=== PATIENT | female | born 1985 | race Caucasian/White ===

== ENCOUNTER 2025-05-10 01:21 | Observation (INO) | payer OTHER, SELFPAY ==
[2025-05-10 04:15] VITALS: BP 120/59
[2025-05-10 05:15] LABS: Add Manual Diff / Slide Review NO; Hematocrit 39.3 % (36-46); Hemoglobin 13.6 g/dL (12.0-16.0); Lymphocytes Absolute Auto 1500 /uL (1100-4500); Mean Corpuscular HGB Conc 34.6 % (30-36); Mean Corpuscular Hemoglobin 32.2 PG (26-34); Mean Corpuscular Volume 93.2 fL (80-100); Platelet Count 234 X10^3/uL (150-400)
[2025-05-10] MEDS: LACTATED RINGERS 1,000 ML 100 ML IV (05:22)
[2025-05-10 13:28] VITALS: BP 120/59
--- NOTE | 2025-05-10 13:30 | P.TNLD_ITS ---
Visit Information Visit Information Date of evaluation: 05/10/25 On-call OB Provider: Marcus Fleming Reason for Evaluation: Yes rule out labor Comments/Additional reasons for admission: 39-year-old at [place] 38+4 weeks. Initially presenting for decreased movement. care received through [facility], was redirected here for evaluation by them due to hospital lock down. Endorses irregular contractions over past few days. Denies leakage of fluid or vaginal bleeding. otherwise uncomplicated. History of VAVD and BPH in prior . Vital Signs Vital Signs: Vital Signs - 8 hr 05/10/25 13:28 Blood Pressure 120/59 L PFSH Social History Smoking Status: Former smoker Review of Systems Review of Systems ROS: Yes All systems reviewed with the patient and are negative except as otherwise documented Exam Vital Signs (past 8 hours): - 05/10/25 13:28 Blood Pressure 120/59 L Narrative Exam Narrative: General: Well-nourished, no distress HEENT: NC/AT, EOMI, moist mucous membranes CV: RRR, normal S1 S2, no m/g/r Resp: CTAB Abd: Gravid, soft, NTND, +BS Ext: Full ROM, no edema Skin: No rash or lesions Neuro: A&O x3, normal tone, no focal deficits Objective Labs 05/10/25 05:00 Labs: Laboratory Results - last 24 hr 05/10/25 05:00 WBC 10.5 RBC 4.22 Hgb 13.6 Hct 39.3 MCV 93.2 MCH 32.2 MCHC 34.6 RDW 14.1 Plt Count 234 Neut % (Auto) 77.9 H Lymph % (Auto) 14.2 L Tompkins % (Auto) 6.8 Eos % (Auto) 0.8 L Baso % (Auto) 0.3 Neut # (Auto) 8200 H Lymph # (Auto) 1500 Tompkins # (Auto) 700 Eos # (Auto) 100 Baso # (Auto) 0 Blood Type O Positive Antibody Screen Negative Crossmatch See Detail Evaluation Evaluation Baseline heart rate: 140 Variability: Moderate (6-25) monitor accelerations: Present Monitor Decelerations: Absent Contraction Frequency (minutes): 7 Uterine Contraction Intensity: Moderate Category of Tracing: Reactive Status: Category l Cervical dilation (cm): 4 Cervical effacement (%): 60 station: -2 Comments: Exam per L&D RN Diagnosis, Plan/Disposition Final Diagnosis (1) Decreased movement affecting management of in third trimester: Status: Acute (2) 38 weeks gestation of : Status: Acute Plan/Disposition Plan: Prolonged observation with category 1 strip reassuring for FWB. Patient made some slow cervical change from 2.5 to 4 cm dilation with irregular contraction pattern. Discussed potential labor augmentation including AROM and/or Pitocin. Patient ultimately requesting discharge so she can drive to [facility] and deliver with her primary OB at [facility]. Patient not in active labor and has discussed with her OB on the phone, who requests that she present directly to their L&D. OB Disposition: home
[2025-05-10 13:40] VITALS: BP 131/75; PULSE 68; RESP 18; TEMP 36.3
== END 2025-05-10 13:45 | disposition home or self-care (01) ==
PROVIDERS: Admitting Provider Family Medicine; Referring Provider Family Medicine; Visit Provider Family Medicine
DX: O36.8130 Decreased fetal movements, third trimester, not applicable or unspecified (principal); Z3A.38 38 weeks gestation of pregnancy
CPT/HCPCS: 36415; 59025; 59050; 85025; 86850; 86900; 86901; 96360; 96361; G0378; G0379